=== PATIENT | female | born 1995 | race Caucasian/White ===

== ENCOUNTER 2016-04-19 12:23 | Emergency (ER) | payer SELFPAY ==
--- NOTE | 2016-04-19 13:00 | ER Document Report ---
ED Medical Screen (RME) - General Stated Complaint: EYE PAIN Mode of Arrival: Ambulatory Information source: Patient Notes: Patient complains of right eye pain and redness. Patient denies any foreign body sensation. Patient does report some blurred vision. Patient does report some drainage. Patient denies any contact lens use but does wear glasses. I have greeted and performed a rapid initial assessment of this patient. A comprehensive ED assessment and evaluation of the patient, analysis of test results and completion of the medical decision making process will be conducted by additional ED providers. - Related Data Allergies/Adverse Reactions: No Known Allergies Allergy (Verified 04/19/16 12:58) Physical Exam - Vital signs Vitals: Temp Pulse Resp BP Pulse Ox 98.6 F 78 17 114/58 L 99 04/19/16 12:54 04/19/16 12:54 04/19/16 12:54 04/19/16 12:54 04/19/16 12:54 - HEENT Conjunctiva: Injected, Purulent discharge Course - Vital Signs Vital signs: Temp Pulse Resp BP Pulse Ox 98.6 F 78 17 114/58 L 99 04/19/16 12:54 04/19/16 12:54 04/19/16 12:54 04/19/16 12:54 04/19/16 12:54
--- NOTE | 2016-04-19 15:30 | ER Document Report ---
HPI - HPI Patient complains to provider of: right eye irritation Onset: Other - 4 days Onset/Duration: Persistent Quality of pain: Achy Severity: Mild Pain Level: 2 Context: Patient presents to the emergency department with complaints of right eye irritation for the past 4 days. She reports history of stye. She also reports the eye has been draining with matting this morning. Denies pinkeye exposure. Denies wearing contacts or eyeglasses. Denies recent trauma. Eyes other symptoms such as fever vomiting diarrhea Associated Symptoms: None Exacerbated by: Denies Relieved by: Denies Similar symptoms previously: Yes - hx of stye Recently seen / treated by doctor: No - DERM Skin Color: Normal Past Medical History - General Information source: Patient Last Menstrual Period: na - Social History Smoking Status: Current Every Day Smoker Cigarette use (# per day): Yes Chew tobacco use (# tins/day): No Frequency of alcohol use: None Drug Abuse: None Occupation: stay at home mom Lives with: Family Family History: Reviewed & Not Pertinent Patient has suicidal ideation: No Patient has homicidal ideation: No Endocrine Medical History: Reports: Hx Diabetes Mellitus Type 2 - gestational Renal/ Medical History: Denies: Hx Peritoneal Dialysis Past Surgical History: Reports: Hx Hysterectomy, Hx Tonsillectomy - Tonsils and Adenoids Vertical Provider Document - CONSTITUTIONAL Agree With Documented VS: Yes Exam Limitations: No Limitations General Appearance: WD/WN, No Apparent Distress - INFECTION CONTROL TRAVEL OUTSIDE OF THE [place] IN LAST 30 DAYS: No - HEENT HEENT: Atraumatic, Conjuctival Injection - right, Normocephalic - NECK Neck: Normal Inspection, Supple. negative: Lymphadenopathy-Left, Lymphadenopathy-Right - RESPIRATORY Respiratory: Breath Sounds Normal, No Respiratory Distress O2 Sat by Pulse Oximetry: 99 - CARDIOVASCULAR Cardiovascular: Regular Rate - MUSCULOSKELETAL/EXTREMETIES Musculoskeletal/Extremeties: MAEW, FROM - NEURO Level of Consciousness: Awake, Alert, Appropriate Motor/Sensory: No Motor Deficit - DERM Integumentary: Warm, Dry Course - Re-evaluation Re-evalutation: 04/19/16 Patient instructed on besivance signs and symptoms of allergic reaction. Patient was also instructed follow-up with ophthalmology return to the emergency department for further concerns. She verbalized understanding. - Vital Signs Vital signs: Temp Pulse Resp BP Pulse Ox 98.6 F 78 17 114/58 L 99 04/19/16 12:54 04/19/16 12:54 04/19/16 12:54 04/19/16 12:54 04/19/16 12:54 Procedures - Eye Procedure Right Eye Irrigated w/ Saline (ccs): 10 Alcaine Drops Administered: No - tetracaine Fluorescein applied: Right Slit lamp used: No Notes: 04/19/16 15:57 tetracaine applied patient reports relief of irritation No fluorescien uptake noted Discharge - Discharge Clinical Impression: Irritation of right eye Condition: Stable Disposition: HOME, SELF-CARE Instructions: Antibiotic Therapy ([facility]), Eyedrop Use ([facility]), Conjunctivitis ([facility]) Additional Instructions: *You have been evaluated for right eye irritation, bacterial conjunctivitis *Use eye drops as prescribed Instill 1 drop into affected eye 3 times daily (4 to 12 hours apart) for 7 days *Good hand washing- Do not reuse wash clothes or towels after wiping eyes *Follow up with an convention services manager *Return to ED for worsening condition, changes, needs
[2016-04-19] MEDS ORDERED: TETRACAINE HCL 0.5% OPH SOLN 2 ML OS ONE (15:32)
[2016-04-19] MEDS ORDERED: BESIFLOXACIN HCL 0.6% OPH SUSP 5 ML BOTTLE OD ONE (15:53)
[2016-04-19 16:22] VITALS: BP 104/58
== END 2016-04-19 16:15 | disposition home or self-care (01) ==
LOC: ER 12:23
DX: H57.8 Other specified disorders of eye and adnexa (principal); F17.210 Nicotine dependence, cigarettes, uncomplicated; Z90.710 Acquired absence of both cervix and uterus
CPT/HCPCS: 99283

== ENCOUNTER 2016-04-23 20:28 | Emergency (ER) | payer SELFPAY ==
--- NOTE | 2016-04-23 20:49 | ER Document Report ---
ED Medical Screen (RME) - General Stated Complaint: FLANK PAIN,VOMITING Notes: patient is a20 year old female p/w flank pain on right that started this AM, dysuria, pyuria, hematuria Strep pyelonephritis. Denies history of kidney stones. I have greeted and performed a rapid initial assessment of this patient. A comprehensive ED assessment and evaluation of the patient, analysis of test results and completion of the medical decision making process will be conducted by additional ED providers. TRAVEL OUTSIDE OF THE [place] IN LAST 30 DAYS: No - Related Data Allergies/Adverse Reactions: No Known Allergies Allergy (Verified 04/19/16 12:58) Past Medical History Endocrine Medical History: Reports: Hx Diabetes Mellitus Type 2 - gestational Renal/ Medical History: Denies: Hx Peritoneal Dialysis Past Surgical History: Reports: Hx Hysterectomy, Hx Tonsillectomy - Tonsils and Adenoids
[2016-04-23] MEDS ORDERED: ONDANSETRON HCL 8 MG TABLET PO ONE (20:50)
[2016-04-23] MEDS ORDERED: ACETAMINOPHEN 325 MG TABLET PO ONE (20:50)
[2016-04-23 21:09] LABS: ABSOLUTE LYMPHOCYTES (AUTO) 0.8 10^3/uL (0.5-4.7); ABSOLUTE MONOCYTES (AUTO) 0.9 10^3/uL (0.1-1.4); ABSOLUTE NEUT (AUTO) 9.1 10^3/uL (1.7-8.2); BASOPHILS % (AUTO) 0.3 % (0-2); EOSINOPHILS % (AUTO) 0.2 % (0-6); HEMATOCRIT 40.6 % (36.0-47.0); HEMOGLOBIN 13.9 g/dL (12.0-15.5); HGB HCT DIFFERENCE 1.1; LYMPHOCYTES % (AUTO) 7.7 % (13-45); MEAN CORPUSCULAR HEMOGLOBIN 31.3 pg (27.0-33.4); MEAN CORPUSCULAR HGB CONC 34.3 g/dL (32.0-36.0); MEAN CORPUSCULAR VOLUME 92 fl (80-97); MONOCYTES % (AUTO) 8.2 % (3-13); RED BLOOD COUNT 4.43 10^6/uL (3.72-5.28); RED CELL DISTRIBUTION WIDTH 12.7 % (11.5-14.0); SEGMENTED NEUTROPHILS % (AUTO) 83.6 % (42-78); WHITE BLOOD COUNT 10.9 10^3/uL (4.0-10.5)
[2016-04-23 21:17] LABS: APPEARANCE,URINE CLOUDY; BILIRUBIN,URINE NEGATIVE (NEGATIVE); GLUCOSE, URINE NEGATIVE (NEGATIVE); KETONES,URINE 20 mg/dL (NEGATIVE); LEUKOCYTE ESTERASE,URINE LARGE (NEGATIVE); NITRITE,URINE NEGATIVE (NEGATIVE); PROTEIN,URINE 100 mg/dL (NEGATIVE); URINE SPECIFIC GRAVITY 1.013; UROBILINOGEN,URINE NEGATIVE mg/dL (<2.0)
[2016-04-23 21:22] LABS: ALANINE AMINOTRANSFERASE 34 U/L (9-52); ALBUMIN 4.6 g/dL (3.5-5.0); ALKALINE PHOSPHATASE 62 U/L (38-126); ANION GAP 12 (5-19); ASPARTATE AMINO TRANSFERASE 20 U/L (14-36); BILIRUBIN,TOTAL 0.9 mg/dL (0.2-1.3); BLOOD UREA NITROGEN 9 mg/dL (7-20); CALCIUM 9.5 mg/dL (8.4-10.2); CARBON DIOXIDE 27 mmol/L (22-30); CHLORIDE 98 mmol/L (98-107); CREATININE RESULT 0.76 mg/dL (0.52-1.25); GLUCOSE 103 mg/dL (75-110); POTASSIUM 3.9 mmol/L (3.6-5.0); TOTAL PROTEIN 7.1 g/dL (6.3-8.2)
[2016-04-23] MEDS ORDERED: CEFTRIAXONE 1 GM/D5W RTU 50 ML IV ONE (22:15)
[2016-04-23] MEDS ORDERED: MORPHINE SULFATE 10 MG/ML INJ IV ONE (22:16)
[2016-04-23] MEDS ORDERED: NORMAL SALINE 1000 ML 1,000 ML IV ONE ×2 (22:16)
--- NOTE | 2016-04-23 22:20 | ER Document Report ---
ED GI/ - General Chief Complaint: Flank Pain Stated Complaint: FLANK PAIN,VOMITING Time seen by provider: 22:10 Notes: Patient is a 20-year-old female that comes emergency department with chief complaint of pain in her right flank, dysuria, and vomiting that started today. Patient pain and vomiting started today, she states she developed a low-grade fever today, she states that she has had painful urination for about 3 days. Patient states she has had multiple kidney infections in the past and this feels similar. Patient denies any history of kidney stones. Patient has had a hysterectomy (reportedly secondary to cervical cancer). Patient denies any vaginal discharge. TRAVEL OUTSIDE OF THE [place] IN LAST 30 DAYS: No - Related Data Allergies/Adverse Reactions: No Known Allergies Allergy (Verified 04/19/16 12:58) Past Medical History - General Information source: Patient - Social History Smoking Status: Never Smoker Frequency of alcohol use: Occasional Drug Abuse: None Lives with: Spouse/Significant other Family History: Reviewed & Not Pertinent Patient has suicidal ideation: No Patient has homicidal ideation: No - Medical History Medical History: Negative Endocrine Medical History: Reports: Hx Diabetes Mellitus Type 2 - gestational Renal/ Medical History: Denies: Hx Peritoneal Dialysis Past Surgical History: Reports: Hx Hysterectomy, Hx Tonsillectomy - Tonsils and Adenoids - Immunizations Hx Diphtheria, Pertussis, Tetanus Vaccination: Yes Review of Systems - Review of Systems Constitutional: See HPI EENT: No symptoms reported Cardiovascular: No symptoms reported Respiratory: No symptoms reported Gastrointestinal: See HPI Genitourinary: See HPI Female Genitourinary: No symptoms reported Musculoskeletal: No symptoms reported Skin: No symptoms reported Hematologic/Lymphatic: No symptoms reported Neurological/Psychological: No symptoms reported Physical Exam - Vital signs Vitals: Temp Pulse Resp BP Pulse Ox 100.3 F 120 H 17 109/66 97 04/23/16 20:48 04/23/16 20:48 04/23/16 20:48 04/23/16 20:48 04/23/16 20:48 Interpretation: Normal - General General appearance: Alert, Anxious In distress: Mild - Patient lying on her left side, appears to be uncomfortable - HEENT Head: Normocephalic, Atraumatic Eyes: Normal Conjunctiva: Normal Extraocular movements intact: Yes Eyelashes: Normal Pupils: PERRL Sinus: Normal Nasal: Normal Mouth/Lips: Normal Mucous membranes: Dry Pharynx: Normal Neck: Normal - Respiratory Respiratory status: No respiratory distress Chest status: Nontender Breath sounds: Normal Chest palpation: Normal - Cardiovascular Rhythm: Regular, Tachycardia Heart sounds: Normal auscultation, S1 appreciated, S2 appreciated Murmur: No - Abdominal Inspection: Normal Distension: No distension Bowel sounds: Normal Tenderness: Nontender. No: Tender, Guarding - Back Back: CVA tenderness - Right side. No: Vertebra tenderness - Extremities General upper extremity: Normal inspection, Nontender, Normal color, Normal ROM , Normal temperature General lower extremity: Normal inspection, Nontender, Normal color, Normal ROM , Normal temperature, Normal weight bearing. No: Enedelia's sign - Neurological Neuro grossly intact: Yes Cognition: Normal Orientation: AAOx4 Casie Coma Scale Eye Opening: Spontaneous Casie Coma Scale Verbal: Oriented [place] Coma Scale Motor: Obeys Commands [place] Coma Scale Total: 15 Speech: Normal Motor strength normal: LUE, RUE, LLE, RLE Sensory: Normal - Psychological Associated symptoms: Normal affect, Normal mood - Skin Skin Temperature: Warm Skin Moisture: Dry Skin Color: Normal Course - Re-evaluation Re-evalutation: Patient with low-grade fever, tachycardia, right flank pain, unremarkable abdominal exam. Patient given pain medication, IV fluids, antibiotics. Patient received Tylenol from triage. On reevaluation vital signs normalized, patient is much improved in appearance, is still complaining of some pain, this resolved with additional small dose of pain medication. Mild leukocytosis at 10.9 with elevation of neutrophils, urine shows large amount of white blood cells and leukocyte esterase, some red blood cells, bacteria. Clinical picture and workup is consistent with pyelonephritis. Discussed with patient, patient feeling much improved after medications, patient is not tachycardic or febrile anymore, patient is not hypotensive. Discussed results patient in detail, patient states she will go home she will return if she develops any concerning or worsening symptoms including fever that cannot be controlled, uncontrolled vomiting, or any other concerning or worsening symptoms. - Vital Signs Vital signs: Temp Pulse Resp BP Pulse Ox 98.2 F 96 14 112/48 L 100 04/24/16 00:39 04/24/16 00:39 04/24/16 00:39 04/24/16 00:39 04/24/16 00:39 - Laboratory Result Diagrams: 04/23/16 20:55 04/23/16 20:55 Laboratory results interpreted by me: 04/23/16 04/23/16 20:55 20:55 WBC 10.9 H Plt Count 140 L Seg Neutrophils % 83.6 H Lymphocytes % 7.7 L Absolute Neutrophils 9.1 H Urine Protein 100 H Urine Ketones 20 H Urine Blood SMALL H Ur Leukocyte Esterase LARGE H Discharge - Discharge Clinical Impression: Pyelonephritis, Flank pain, Dysuria Condition: Stable Disposition: HOME, SELF-CARE Additional Instructions: Workup and symptoms are consistent with pyelonephritis, a urinary tract infection. Please take the Levaquin as prescribed (you already got the dose for today ), take the pain medication and nausea medication if needed. Please return immediately if you worsen in any way including spiking fever, worsening pain, uncontrolled vomiting, etc. Prescriptions: Levofloxacin [Levaquin 750 mg Tablet] 750 mg PO DAILY #4 tablet Oxycodone HCl/Acetaminophen [Percocet 5-325 mg Tablet] 1 - 2 tab PO Q4H PRN #15 tablet PRN Reason: Promethazine HCl [Phenergan 25 mg Tablet] 1 - 2 tab PO Q6H PRN #15 tablet PRN Reason:
[2016-04-23] MEDS ORDERED: FENTANYL CITRATE INJ/PF 100 MCG/2 ML AMPUL IV ONE (23:52)
[2016-04-24 00:46] VITALS: BP 112/48
[2016-04-24] MEDS ORDERED: LEVOFLOXACIN 750 MG TABLET PO ONE (00:49)
== END 2016-04-24 00:50 | disposition home or self-care (01) ==
LOC: ER 20:28
DX: N12 Tubulo-interstitial nephritis, not specified as acute or chronic (principal); R30.0 Dysuria; R10.9 Unspecified abdominal pain; R11.10 Vomiting, unspecified; Z90.710 Acquired absence of both cervix and uterus; Z87.442 Personal history of urinary calculi
CPT/HCPCS: 99284; 96361; 96375; 96365; 36415; 87086; 85025; 87088; 80053; 81001; 87186; J3010; J2270; S0119; J7030; J0696

== ENCOUNTER 2016-04-24 11:07 | Emergency (ER) | payer SELFPAY ==
--- NOTE | 2016-04-24 11:18 | ER Document Report ---
ED Medical Screen (RME) - General Stated Complaint: FLANK PAIN Notes: patient is a 20 year old female p/w fever, chills, b/l flank pain, vomiting, dysuria and pyuria. was d/c'd last night with pyelonephritis and returns today with worsening symptoms I have greeted and performed a rapid initial assessment of this patient. A comprehensive ED assessment and evaluation of the patient, analysis of test results and completion of the medical decision making process will be conducted by additional ED providers. TRAVEL OUTSIDE OF THE [place] IN LAST 30 DAYS: No - Related Data Allergies/Adverse Reactions: No Known Allergies Allergy (Verified 04/19/16 12:58) Past Medical History Endocrine Medical History: Reports: Hx Diabetes Mellitus Type 2 - gestational Renal/ Medical History: Denies: Hx Peritoneal Dialysis Past Surgical History: Reports: Hx Hysterectomy, Hx Tonsillectomy - Tonsils and Adenoids - Immunizations Hx Diphtheria, Pertussis, Tetanus Vaccination: Yes Physical Exam - Vital signs Vitals: Temp Pulse Resp BP Pulse Ox 98.0 F 110 H 18 95/64 L 100 04/24/16 11:14 04/24/16 11:14 04/24/16 11:14 04/24/16 11:14 04/24/16 11:14 Course - Vital Signs Vital signs: Temp Pulse Resp BP Pulse Ox 98.0 F 110 H 18 95/64 L 100 04/24/16 11:14 04/24/16 11:14 04/24/16 11:14 04/24/16 11:14 04/24/16 11:14
[2016-04-24] MEDS ORDERED: NORMAL SALINE 1000 ML 1,000 ML IV PRN (11:19)
[2016-04-24] MEDS ORDERED: PROMETHAZINE HCL 25 MG TABLET PO ONE (11:19)
[2016-04-24 11:42] LABS: ABSOLUTE LYMPHOCYTES (AUTO) 0.9 10^3/uL (0.5-4.7); ABSOLUTE MONOCYTES (AUTO) 0.9 10^3/uL (0.1-1.4); ABSOLUTE NEUT (AUTO) 8.4 10^3/uL (1.7-8.2); BASOPHILS % (AUTO) 0.3 % (0-2); EOSINOPHILS % (AUTO) 0.1 % (0-6); HEMATOCRIT 40.2 % (36.0-47.0); HEMOGLOBIN 13.7 g/dL (12.0-15.5); HGB HCT DIFFERENCE 0.9; LYMPHOCYTES % (AUTO) 8.5 % (13-45); MEAN CORPUSCULAR HEMOGLOBIN 31.2 pg (27.0-33.4); MEAN CORPUSCULAR VOLUME 92 fl (80-97); MONOCYTES % (AUTO) 8.6 % (3-13); RED BLOOD COUNT 4.38 10^6/uL (3.72-5.28); RED CELL DISTRIBUTION WIDTH 12.7 % (11.5-14.0); SEGMENTED NEUTROPHILS % (AUTO) 82.5 % (42-78); WHITE BLOOD COUNT 10.2 10^3/uL (4.0-10.5)
[2016-04-24 11:57] LABS: APPEARANCE,URINE SLIGHTLY-CLOUDY; BILIRUBIN,URINE NEGATIVE (NEGATIVE); GLUCOSE, URINE NEGATIVE (NEGATIVE); KETONES,URINE 80 mg/dL (NEGATIVE); LEUKOCYTE ESTERASE,URINE SMALL (NEGATIVE); NITRITE,URINE NEGATIVE (NEGATIVE); PROTEIN,URINE 30 mg/dL (NEGATIVE); URINE SPECIFIC GRAVITY 1.011; UROBILINOGEN,URINE NEGATIVE mg/dL (<2.0)
[2016-04-24 12:04] LABS: ALANINE AMINOTRANSFERASE 34 U/L (9-52); ALBUMIN 3.7 g/dL (3.5-5.0); ALKALINE PHOSPHATASE 63 U/L (38-126); ANION GAP 11 (5-19); ASPARTATE AMINO TRANSFERASE 18 U/L (14-36); BILIRUBIN,TOTAL 0.6 mg/dL (0.2-1.3); BLOOD UREA NITROGEN 8 mg/dL (7-20); CARBON DIOXIDE 26 mmol/L (22-30); CHLORIDE 101 mmol/L (98-107); CREATININE RESULT 0.66 mg/dL (0.52-1.25); GLUCOSE 99 mg/dL (75-110); SODIUM 137.9 mmol/L (137-145)
[2016-04-24] MEDS ORDERED: MORPHINE SULFATE 10 MG/ML INJ IV ONE ×2 (12:30→13:55)
[2016-04-24] MEDS ORDERED: ONDANSETRON HCL INJ/PF 4 MG/2 ML SDV IV ONE (12:31)
--- NOTE | 2016-04-24 12:32 | ER Document Report ---
ED General - General Chief Complaint: Flank Pain Stated Complaint: FLANK PAIN Mode of Arrival: Wheelchair Information source: Patient Notes: Patient is a 20 yo female who presents with b/l flank pain and vomiting that started this morning. Patient was discharged from here last night/early this morning, diagnosed with pyelonephritis, treated with IVF, IV pain meds and given scripts for anti-emetic/pain medication. She does report some resolution of symptoms prior to discharge. She states she has not been able to get home scripts filled. According to the patient, fever and lower abdominal/back pain began approximately 30 minutes after arriving home this morning and she has had 3+ episodes of emesis since then and has been unable to keep anything down. Denies any dizziness, headache, diarrhea dysuria, vaginal discharge. TRAVEL OUTSIDE OF THE [place] IN LAST 30 DAYS: No - Related Data Allergies/Adverse Reactions: No Known Allergies Allergy (Verified 04/19/16 12:58) Past Medical History - Social History Smoking Status: Current Every Day Smoker Family History: Reviewed & Not Pertinent Patient has suicidal ideation: No Patient has homicidal ideation: No Endocrine Medical History: Reports: Hx Diabetes Mellitus Type 2 - gestational Renal/ Medical History: Denies: Hx Peritoneal Dialysis Past Surgical History: Reports: Hx Hysterectomy, Hx Tonsillectomy - Tonsils and Adenoids - Immunizations Hx Diphtheria, Pertussis, Tetanus Vaccination: Yes Review of Systems - Review of Systems Constitutional: See HPI EENT: No symptoms reported Cardiovascular: No symptoms reported Respiratory: No symptoms reported Gastrointestinal: See HPI Genitourinary: See HPI Female Genitourinary: No symptoms reported Musculoskeletal: No symptoms reported Skin: No symptoms reported Hematologic/Lymphatic: No symptoms reported Neurological/Psychological: No symptoms reported Physical Exam - Vital signs Vitals: Temp Pulse Resp BP Pulse Ox 98.0 F 110 H 18 95/64 L 100 04/24/16 11:14 04/24/16 11:14 04/24/16 11:14 04/24/16 11:14 04/24/16 11:14 Interpretation: Hypotensive, Tachycardic - Notes Notes: PHYSICAL EXAM: CONSTITUTIONAL: Alert and oriented, ill-appearing but in no acute distress. Appears uncomfortable. HENT: Normocephalic, atraumatic. Moist mucous membranes. EYES: Pupils equal round and reactive to light, EOM intact. Sclera anicteric, conjunctiva are normal. No entrapment. NECK: supple without lymphadenopathy. ROM intact. HEART: Regular rate and rhythm without murmurs. LUNGS: CTAB and equal. No wheezes, rales or rhonchi. GI: Normactive bowel sounds. Tender to palpation in suprapubic region, non- distended. No rebound and guarding. No organomegaly. + Bilateral CVAT. EXTREMITIES: Normal range of motion, no pitting edema. No cyanosis. Cap Refill < 3 seconds. NEURO: Cranial nerves grossly intact. Normal sensory/motor exams. SKIN: Warm and dry. Normal turgor. No rashes or lesions noted. Course - Re-evaluation Re-evalutation: 04/24/16 13:19 I have consulted with the supervisory physician per [facility] guidelines. Patient seen and examined. Due to return visit in <24 hours, repeat blood work obtained and will obtain A/P CT w/ contrast to further evaluate source. Given IVF bolus, IV morphine/zofran. Patient received PO phenergan in triage. 04/24/16 13:20 Review of repeat blood work revealed no leukocytosis (10.2) which is improved from yesterday (10.9). Chemistry panel within normal limits. Will give 2nd liter of IVF while awaiting CT results. 04/24/16 14:32 Reviewed urinalysis - improved since yesterday. Preliminary urine culture from shows gram negative rods, at this time, discharge antibiotics provides adequate coverage for these preliminary results. CT of A/P w/ IV contrast reveals mild splenic enlargement and pelvic free fluid with no other abnormalities. Patient states pain has improved and reports no episodes of emesis while in ED. Patient's vital signs improved, tachycardia resolved and hypotension resolved after 2 L of IVF bolus. Discussed with supervisory physician who is in agreement with discharge disposition. Discharged home in stable condition, advised to go directly to pharmacy to have prescriptions ( oxycodone, phenergan, levaquin) filled. At this time, will not give any additional pain medications. Return precautions given, follow-up with primary care doctor. - Vital Signs Vital signs: Temp Pulse Resp BP Pulse Ox 97.8 F 99 16 113/60 99 04/24/16 15:10 04/24/16 15:10 04/24/16 15:10 04/24/16 15:10 04/24/16 15:10 04/24/16 14:32 - Laboratory Result Diagrams: 04/24/16 10:30 04/24/16 10:30 Laboratory results interpreted by me: 04/24/16 04/24/16 10:30 11:38 Plt Count 124 L Seg Neutrophils % 82.5 H Lymphocytes % 8.5 L Absolute Neutrophils 8.4 H Urine Protein 30 H Urine Ketones 80 H Urine Blood SMALL H Ur Leukocyte Esterase SMALL H - Diagnostic Test Radiology reviewed: Image reviewed, Reports reviewed Radiology results interpreted by me: 04/24/16 14:31 CT abd/pelvis with IV contrast showed mild splenic enlargement and small amount pelvic free fluid but no other abnormalities. Discharge - Discharge Clinical Impression: Acute flank pain Nausea and vomiting Qualifiers: Vomiting type: unspecified Vomiting Intractability: non-intractable Qualified Code(s): R11.2 - Nausea with vomiting, unspecified UTI (urinary tract infection) Qualifiers: Urinary tract infection type: acute cystitis Hematuria presence: without hematuria Qualified Code(s): N30.00 - Acute cystitis without hematuria Condition: Stable Disposition: HOME, SELF-CARE Additional Instructions: You were discharged with appropriate pain medication, anti-nausea and vomiting medication and antibiotic. Your urine culture is still pending but the preliminary results showed that the antibiotic you were prescribed yesterday covers the bacteria that are present. You will be called if this changes. Continue to take the medications as directed. Follow up with her primary care doctor. Return if your symptoms are not improved after taking this medication. PYELONEPHRITIS: Your evaluation shows evidence of pyelonephritis. This is an infection in the kidney. Typical symptoms are fever, pain in the flank, pain on urination, and frequent urination. Many cases of pyelonephritis can be treated at home. Hospital care may be necessary for patients who are very ill, or elderly or . Pyelonephritis is treated with antibiotics. Be sure to take all the medication as prescribed. Drink plenty of liquids (about three quarts per day) . You may take acetaminophen for fever. You should feel significantly improved within two days. You should have a recheck of your urine in about one week to insure that the infection is gone. Return for a re-examination if your symptoms worsen in any way -- such as high fever, shaking chills, severe weakness or dizziness, severe pain, or inability to pass your urine. PAIN MEDICATION INJECTION: You have received an injection of a pain medication. You should experience significant pain relief within 45 minutes. This drug is a narcotic - - it will impair your judgement, slow your reaction time and make you sleepy ( as well as relieve your pain). Narcotics also can cause nausea. You should not drive, work with machinery, or perform any task requiring mental alertness until all effects of the medication are gone -- six to eight hours. Do not take any alcohol, or sedatives, and do not take any other medication without checking with your physician. ANTINAUSEA MEDICATION: You have been given a medication to suppress nausea and vomiting. This type of medication can be given as a shot, pill, or suppository. It will usually last for many hours. Pills and shots usually last six to eight hours, suppositories last about 12 hours. For the typical illness, only one or two doses of the medication may be necessary. Mild lightheadedness may occur. This type of medicine can cause drowsiness. Do not drive or operate dangerous machinery while under its influence. Do not mix with alcohol. See your doctor at once if you have muscle spasms or tightness, or uncontrollable motions (particularly of the neck, mouth, or jaw). Persistent vomiting or severe lightheadedness should also be evaluated by the physician. ANTIBIOTIC THERAPY: You have been given an antibiotic prescription. It's important that you take all the medication, unless instructed otherwise by your physician. Failure to complete the entire course can result in relapse of your condition. Common side effects of antibiotics include nausea, intestinal cramping, or diarrhea. Women may develop vaginal yeast infections, and babies can get yeast (thrush) in the mouth following the use of antibiotics. Contact your physician if you develop significant side effects from this medication. Allergy to this antibiotic can result in hives, wheezing, faintness, or itching. If symptoms of allergy occur, stop the medication and call the doctor. LEVOFLOXACIN: You have been given an antibacterial agent, levofloxacin (Levaquin). This medicine is not related to the penicillins, sulfas, cephalosporins, or tetracyclines. It is often given to patients who are allergic to these drugs. It has been chosen for you either because other drugs are not appropriate, or because of the nature of your problem. Levaquin should not be taken with antacids, as these can decrease its effectiveness. It can be taken without regard to meals. LEVAQUIN SHOULD NOT BE TAKEN BY CHILDREN, NURSING WOMEN, OR WOMEN. Although Levaquin is usually well-tolerated, common side effects can include nausea and diarrhea. Contact your doctor if you experience any unusual symptoms while on this medication, such as joint pain or swelling, shortness of breath, wheezing, faintness, or hives. USE OF ACETAMINOPHEN (Tylenol): Acetaminophen may be taken for pain relief or fever control. It's much safer than aspirin, offering a wider range of "safe" dosages. It is safe during . Some brand names are Tylenol, Panadol, Datril, Anacin 3, Tempra, and Liquiprin. Acetaminophen can be repeated every four hours. The following are maximum recommended dosages: >89 pounds or adults 650 mg to 900 mg Acetaminophen can be repeated every four hours. Maximum dose not to exceed 4000 mg a day. ORAL NARCOTIC MEDICATION: You have been given a prescription for pain control. This medication is a narcotic. It's best taken with food, as nausea can result if taken on an empty stomach. Don't operate machinery or drive within six hours of taking this medication. Do not combine this medicine with alcohol, or with any medication which can cause sedation (such as cold tablets or sleeping pills) unless you get permission from the physician. Narcotics tend to cause constipation. If possible, drink plenty of fluids and eat a diet high in fiber and fruits. Please be aware that prescription narcotics also have the potential for abuse. People become addicted to these medications because of the general sense of wellbeing that they induce. This feeling along with a significant reduction in tension, anxiety, and aggression provides a stimulating seductive quality to these drugs. Once your pain is under control, we encourage you to discard your unused narcotics. FOLLOW-UP CARE: If you have been referred to a physician for follow-up care, call the physician s office for an appointment as you were instructed or within the next two days. If you experience worsening or a significant change in your symptoms, notify the physician immediately or return to the Emergency Department at any time for re-evaluation.
[2016-04-24 15:10] VITALS: BP 113/60
== END 2016-04-24 15:52 | disposition home or self-care (01) ==
LOC: ER 11:07
DX: N30.00 Acute cystitis without hematuria (principal); R16.1 Splenomegaly, not elsewhere classified; R11.2 Nausea with vomiting, unspecified; I95.9 Hypotension, unspecified; R00.0 Tachycardia, unspecified; F17.200 Nicotine dependence, unspecified, uncomplicated; Z90.710 Acquired absence of both cervix and uterus
CPT/HCPCS: 96376; 99284; 96374; 96375; 36415; 85025; 80053; 81001; 74177; J2270; J2405; J7030

== ENCOUNTER 2016-06-21 16:28 | Emergency (ER) | payer MEDICAID ==
[2016-06-21] MEDS ORDERED: LIDOCAINE 1% INJ-PF (10 MG/ML) 30 ML SDV INJ ONE (16:56)
--- NOTE | 2016-06-21 16:57 | ER Document Report ---
ED General - General Chief Complaint: Abscess Stated Complaint: POSSIBLE ABSCESS ON BACK TRAVEL OUTSIDE OF THE [place] IN LAST 30 DAYS: No - HPI Patient complains to provider of: abscess at tattoo site - Related Data Allergies/Adverse Reactions: No Known Allergies Allergy (Verified 06/21/16 16:34) Past Medical History - Social History Family History: Reviewed & Not Pertinent Patient has suicidal ideation: No Patient has homicidal ideation: No Endocrine Medical History: Reports: Hx Diabetes Mellitus Type 2 - gestational Renal/ Medical History: Denies: Hx Peritoneal Dialysis Past Surgical History: Reports: Hx Hysterectomy, Hx Tonsillectomy - Tonsils and Adenoids - Immunizations Hx Diphtheria, Pertussis, Tetanus Vaccination: Yes Review of Systems - Review of Systems Constitutional: Other - Abscess at tattoo site Physical Exam - Vital signs Vitals: Temp Pulse Resp BP Pulse Ox 98.7 F 108 H 16 109/69 99 06/21/16 16:34 06/21/16 16:34 06/21/16 16:34 06/21/16 16:34 06/21/16 16:34 - General Notes: Abscess at tattoo site Course - Vital Signs Vital signs: Temp Pulse Resp BP Pulse Ox 98.7 F 108 H 16 109/69 99 06/21/16 16:34 06/21/16 16:34 06/21/16 16:34 06/21/16 16:34 06/21/16 16:34
[2016-06-21] MEDS ORDERED: HYDROCODONE/ACETAMINOPHEN 5-325 MG TABLET PO ONE (16:58)
--- NOTE | 2016-06-21 16:58 | ER Document Report ---
ED Medical Screen (RME) - General Chief Complaint: Abscess Stated Complaint: POSSIBLE ABSCESS ON BACK TRAVEL OUTSIDE OF THE [place] IN LAST 30 DAYS: No - HPI Patient complains to provider of: abscess at tattoo site - Related Data Allergies/Adverse Reactions: No Known Allergies Allergy (Verified 06/21/16 16:34) Past Medical History Endocrine Medical History: Reports: Hx Diabetes Mellitus Type 2 - gestational Renal/ Medical History: Denies: Hx Peritoneal Dialysis Past Surgical History: Reports: Hx Hysterectomy, Hx Tonsillectomy - Tonsils and Adenoids - Immunizations Hx Diphtheria, Pertussis, Tetanus Vaccination: Yes Review of Systems - Review of Systems Constitutional: Other - Abscess at tattoo site Physical Exam - Vital signs Vitals: Temp Pulse Resp BP Pulse Ox 98.7 F 108 H 16 109/69 99 06/21/16 16:34 06/21/16 16:34 06/21/16 16:34 06/21/16 16:34 06/21/16 16:34 - Notes Notes: No obvious distress difficult to examine due to location of abscesses Course - Vital Signs Vital signs: Temp Pulse Resp BP Pulse Ox 98.7 F 108 H 16 109/69 99 06/21/16 16:34 06/21/16 16:34 06/21/16 16:34 06/21/16 16:34 06/21/16 16:34
[2016-06-21] MEDS ORDERED: LIDOCAINE 1% INJ-PF (10 MG/ML) 30 ML SDV ONE (17:16)
[2016-06-21] MEDS ORDERED: CLINDAMYCIN HCL 150 MG CAPSULE PO ONE (17:46)
--- NOTE | 2016-06-21 17:51 | ER Document Report ---
ED Skin Rash/Insect Bite/Abscs - General Chief Complaint: Abscess Stated Complaint: POSSIBLE ABSCESS ON BACK Mode of Arrival: Ambulatory Information source: Patient Notes: 20 y/o F presents to ED c/o abscess to back. Pt reports has 2 small areas to mid back that began as pimple-like and have increased in size and tenderness. Pt states incised on with a needle yesterday but still getting larger. States had a tattoo done to back last week and that is were one of the abscesses is now. Denies fever, drainage, n/v. States last tetanus vaccinatin 18 mos ago. TRAVEL OUTSIDE OF THE [place] IN LAST 30 DAYS: No - HPI Patient complains to provider of: Tender/swollen area Onset/Duration: Gradual Quality of pain: Achy Severity: Mild Pain Level: 2 Skin Character: Abscess, Erythema, Tenderness Skin Temperature: Warm Quality of rash: Painful Similar symptoms previously: No Recently seen / treated by doctor: No - Related Data Allergies/Adverse Reactions: No Known Allergies Allergy (Verified 06/21/16 16:34) Past Medical History - General Information source: Patient - Social History Smoking Status: Current Some Day Smoker Chew tobacco use (# tins/day): Yes Frequency of alcohol use: Social Drug Abuse: None Lives with: Family Family History: Reviewed & Not Pertinent Patient has suicidal ideation: No Patient has homicidal ideation: No Endocrine Medical History: Reports: Other - gestational diabetes Renal/ Medical History: Denies: Hx Peritoneal Dialysis Past Surgical History: Reports: Hx Hysterectomy, Hx Tonsillectomy - Tonsils and Adenoids - Immunizations Hx Diphtheria, Pertussis, Tetanus Vaccination: Yes Review of Systems - Review of Systems Constitutional: No symptoms reported EENT: No symptoms reported Cardiovascular: No symptoms reported Respiratory: No symptoms reported Gastrointestinal: No symptoms reported Genitourinary: No symptoms reported Female Genitourinary: No symptoms reported Musculoskeletal: No symptoms reported Skin: See HPI Hematologic/Lymphatic: No symptoms reported Neurological/Psychological: No symptoms reported -: Yes All other systems reviewed and negative Physical Exam - Vital signs Vitals: Temp Pulse Resp BP Pulse Ox 98.7 F 108 H 16 109/69 99 06/21/16 16:34 06/21/16 16:34 06/21/16 16:34 06/21/16 16:34 06/21/16 16:34 - General General appearance: Appears well, Alert In distress: None - HEENT Head: Normocephalic, Atraumatic Eyes: Normal Pupils: PERRL - Respiratory Respiratory status: No respiratory distress Chest status: Nontender Breath sounds: Normal Chest palpation: Normal - Cardiovascular Rhythm: Regular Heart sounds: Normal auscultation Murmur: No Pulses: Normal: Radial Normal capillary refill: Yes - Abdominal Inspection: Normal Distension: No distension Bowel sounds: Normal Tenderness: Nontender Organomegaly: No organomegaly - Back Back: Normal, Nontender - Extremities General upper extremity: Normal inspection, Nontender, Normal color, Normal ROM , Normal strength, Normal temperature General lower extremity: Normal inspection, Nontender, Normal color, Normal ROM , Normal strength, Normal temperature, Normal weight bearing - Neurological Neuro grossly intact: Yes Cognition: Normal Orientation: AAOx4 [place] Coma Scale Eye Opening: Spontaneous Casie Coma Scale Verbal: Oriented Casie Coma Scale Motor: Obeys Commands Casie Coma Scale Total: 15 Speech: Normal Motor strength normal: LUE, RUE, LLE, RLE Sensory: Normal - Skin Skin Temperature: Warm Skin Moisture: Dry Skin Color: Normal Skin Turgor: Elastic Skin irregularity: Abscess, Erythema, Tender indurated area Course - Re-evaluation Re-evalutation: 06/21/16 17:54 Pt hemodynamically stable, in no distress, afebrile, non-toxic. Abscess I&D'd, culture of drainage obtained, iodoform packing placed. Pt tolerated well. Pt appears stable for discharge and agrees with home care, follow-up with pcp, and ED return precautions. - Vital Signs Vital signs: Temp Pulse Resp BP Pulse Ox 98.7 F 108 H 16 109/69 99 06/21/16 16:34 06/21/16 16:34 06/21/16 16:34 06/21/16 16:34 06/21/16 16:34 Procedures - Incision and Drainage Mid- Back Time completed: 17:35 Type: Simple Anesthetic type: 1% Lidocaine mL's of anesthetic: 6 Blade size: 11 I&D procedure: Betadine prep applied, Chlorprep applied, Iodoform packing placed , Sterile dressing applied Incision Method: Incision made by scalpel Amount/type of drainage: scant amount drainage. culture obtained. Adult Front & Back picture: 1 - cellulitis 2 - abscess Discharge - Discharge Clinical Impression: Abscess or cellulitis of back Condition: Stable Disposition: HOME, SELF-CARE Additional Instructions: ABSCESS: You have an abscess (boil). This a pus-forming infection, usually due to staph. Some boils may be left to drain on their own, but most require lancing. From the time the tender lump first appears, it may be three or four days before the abscess is ready to [place]. Local heat and rest help at this stage of treatment. An antibiotic may prevent spread of the infection. Once the abscess is opened, packing may be placed into it. This is done so pus is not sealed inside by premature closure of the cavity. The packing will be removed at your follow-up visit or you may be advised to remove it yourself at home. Sometimes this packing must be replaced a few times during healing. The wound will heal with surprisingly little scar. Depending on the size and location of an abscess, healing can take one to four weeks. You may shower and wash the area around the incision site two or three times a day. Antibiotics may be prescribed, but are usually not necessary after an abscess has been drained. If you develop fever, chills, worsening pain, or increasing swelling in the area, call the doctor or return immediately. POST INCISION AND DRAINAGE: You have had an incision made to allow drainage of an abscess. The incision must remain open so that pus and debris can drain from the wound. If the abscess cavity is large, packing is placed. This keeps the tissues from collapsing and trapping pus inside, while the body shrinks the cavity. The packing may need to be replaced every day or two. The physician will instruct you on the packing. Keep a bulky dressing over the area. Replace it if it becomes saturated with blood or pus. Do not disturb the packing (if present). You may shower and cleanse the area with gentle soap and warm water two or three times a day. Local warmth may be soothing, and may promote faster healing. Return if you develop high fever or chills, or if you note spreading redness, increasing swelling, or increasing tenderness. CELLULITIS: You have an infection of your skin and underlying soft tissues called cellulitis. This is due to bacteria, which can enter through any break in the skin, or even through an irritated hair follicle. Untreated, cellulitis will usually worsen and may form an abscess which requires draining. Although many bacterial organisms can cause cellulitis and abscess formations, the most likely bacteria is Methicillin-Resistant Staph Aureus, or MRSA for short. Antibiotics are required. Usually, warm packs or warm soaks, and elevation of the infected area are recommended. You should start getting better within 24 to 36 hours. Most infections respond quickly to the right medication. Follow-up care is important, however, to check for abscess (boil) formation, unsuspected foreign body, or resistant infection. If you develop fever, chills, or if the area of infection is becoming rapidly more swollen or painful, call the doctor at once. ORAL NARCOTIC MEDICATION: You have been given a prescription for pain control. This medication is a narcotic. It's best taken with food, as nausea can result if taken on an empty stomach. Don't operate machinery or drive within six hours of taking this medication. Do not combine this medicine with alcohol, or with any medication which can cause sedation (such as cold tablets or sleeping pills) unless you get permission from the physician. Narcotics tend to cause constipation. If possible, drink plenty of fluids and eat a diet high in fiber and fruits. Clindamycin You have been given a prescription for the antibiotic clindamycin. It is often prescribed for infections in the mouth, such as dental infections or abscesses, and for skin infections due to MRSA. It's important that you take all the medication, unless instructed otherwise by your physician. Failure to complete the entire course can result in relapse of your condition. Common side effects of antibiotics include nausea, intestinal cramping, or diarrhea. Women may develop vaginal yeast infections, and babies can get yeast (thrush) in the mouth following the use of antibiotics. Contact your physician if you develop significant side effects from this medication. Allergy to this antibiotic can result in hives, wheezing, faintness, or itching. If symptoms of allergy occur, stop the medication and call the doctor. Anti-Inflammatory Medication You have received a prescription for an antiinflammatory agent. This is an excellent, safe drug for pain control. In addition, it has potent antiinflammatory effects which are beneficial, especially in the treatment of injuries, arthritis, or tendonitis. It's best to take this medicine with food. Persons with ulcer disease or allergy to aspirin should notify their physician of this before taking this drug. Take the medication exactly as prescribed. Don't take additional doses unless instructed to do so by your doctor. If you develop wheezing, shortness of breath, hives, faintness, stomach pain, vomiting, or dark black stools, return for re-evaluation at once. FOLLOW-UP CARE: Remove the packing that was placed in 48 hrs. Keep the area clean and dry. If you experience worsening or a significant change in your symptoms, return to the Emergency Department at any time for re-evaluation. Prescriptions: Clindamycin HCl 300 mg PO Q6H #28 capsule Naproxen [Naprosyn 375 Mg Tablet] 375 mg PO BIDP PRN #10 tablet PRN Reason: Forms: Return to Work
[2016-06-21] MEDS ORDERED: HYDROCODONE/ACETAMINOPHEN 5-325 MG 6 TAB/DSPK PO PRN (18:00)
[2016-06-21 18:57] VITALS: BP 110/72
== END 2016-06-21 18:31 | disposition home or self-care (01) ==
LOC: ER 16:28
PROC: 0H96XZZ Drainage of Back Skin, External Approach (ICD-10-PCS; principal; 2016-06-21)
DX: L02.212 Cutaneous abscess of back [any part, except buttock and flank] (principal); L03.312 Cellulitis of back [any part except buttock and flank]; F17.200 Nicotine dependence, unspecified, uncomplicated
CPT/HCPCS: 10060; 99283; 87070; 87205; 87075; 87077; 87186; J3490